=== PATIENT | male | born 1970 | race American Indian/Alaskan Native ===

== ENCOUNTER 2018-12-28 08:12 | Observation (INO) | payer OTHER ==
--- NOTE | 2018-12-28 08:55 | Emergency Department Report ---
ED Lower Extremity HPI - General Chief Complaint: Extremity Injury, Lower Stated Complaint: RT TOE PAIN Time Seen by Provider: 12/28/18 08:46 Source: patient Mode of arrival: Ambulatory Limitations: No Limitations - History of Present Illness Initial Comments: Patient is a 48-year-old male that presents emergency room with complaints of an open ulcer to the bottom of his right foot this been going on for 3-4 months. Patient states the ulcer is getting bigger and he is noticing skin changes to other toes. Patient states that he is not having any pain. Patient states that the wound has an odor. Patient denies fever and chills. Patient states she is a diabetic and has high blood pressure but stopped his medications about a year ago. Complaint: other -: Gradual, month(s) Injury: Foot: Left Type of Injury: unknown Place: home Severity: severe Improves With: nothing Worsens With: nothing Context: other Treatments Prior to Arrival: bandage - Related Data Home Medications Medication Instructions Recorded Confirmed Last Taken No Known Home Medications [No 12/28/18 12/28/18 Unknown Reported Home Medications] Allergies Allergy/AdvReac Type Severity Reaction Status Date / Time No Known Allergies Allergy Unverified 12/28/18 09:26 ED Review of Systems ROS: Stated complaint: RT TOE PAIN Other details as noted in HPI Constitutional: denies: chills, fever Eyes: denies: eye pain, eye discharge, vision change ENT: denies: ear pain, throat pain Respiratory: denies: cough, shortness of breath, wheezing Cardiovascular: denies: chest pain, palpitations Endocrine: no symptoms reported Gastrointestinal: denies: abdominal pain, nausea, diarrhea Genitourinary: denies: urgency, dysuria Musculoskeletal: denies: back pain, joint swelling, arthralgia Skin: denies: rash, lesions Neurological: denies: headache, weakness, paresthesias Psychiatric: denies: anxiety, depression Hematological/Lymphatic: denies: easy bleeding, easy bruising ED Past Medical Hx - Past Medical History Previous Medical History?: Yes Hx Hypertension: Yes Hx Diabetes: Yes - Surgical History Past Surgical History?: No - Family History Family history: no significant - Social History Smoking Status: Never Smoker Substance Use Type: None - Medications Home Medications: Home Medications Medication Instructions Recorded Confirmed Last Taken Type No Known Home Medications [No 12/28/18 12/28/18 Unknown History Reported Home Medications] ED Physical Exam - General Limitations: No Limitations General appearance: alert, in no apparent distress - Head Head exam: Present: atraumatic, normocephalic - Eye Eye exam: Present: normal appearance - ENT ENT exam: Present: mucous membranes moist - Neck Neck exam: Present: normal inspection - Respiratory Respiratory exam: Present: normal lung sounds bilaterally. Absent: respiratory distress - Cardiovascular Cardiovascular Exam: Present: regular rate, normal rhythm. Absent: systolic mu rmur, diastolic murmur, rubs, gallop - GI/Abdominal GI/Abdominal exam: Present: soft, normal bowel sounds - Rectal Rectal exam: Present: deferred - Extremities Exam Extremities exam: Present: normal inspection - Back Exam Back exam: Present: normal inspection - Neurological Exam Neurological exam: Present: alert, oriented X3 - Psychiatric Psychiatric exam: Present: normal affect, normal mood - Skin Skin exam: Present: warm, dry, normal color, other (right great toe ulcer noted. Ulceration at the base of the great toe. Strong foul odor noted to wound bed. Discharge noted. No tenderness to palpation. White edges noted). Absent: rash ED Course Vital Signs 12/28/18 12/28/18 12/28/18 08:15 08:47 08:49 Temperature 98.6 F 98.5 F Pulse Rate 72 Respiratory 16 Rate Blood Pressure Blood Pressure 186/114 [Left] O2 Sat by Pulse 100 100 Oximetry 12/28/18 12/28/18 12/28/18 09:00 09:16 09:30 Temperature Pulse Rate Respiratory Rate Blood Pressure 158/101 158/101 171/115 Blood Pressure [Left] O2 Sat by Pulse 99 99 97 Oximetry 12/28/18 12/28/18 12/28/18 12:04 12:32 12:37 Temperature Pulse Rate 72 72 Respiratory 20 Rate Blood Pressure 182/112 Blood Pressure [Left] O2 Sat by Pulse Oximetry 12/28/18 13:00 Temperature Pulse Rate Respiratory Rate Blood Pressure 185/106 Blood Pressure [Left] O2 Sat by Pulse Oximetry - Reevaluation(s) Reevaluation #1: Discussed all results with patient. Patient will be admitted to the hospitalist service. Patient agrees to plan of care. 12/28/18 09:49 - Consultations Consultation #1: Hospitalist consulted for admission. Hospitalist to admit patient. Hospitalist to assume care patient. Bridge orders placed 12/28/18 09:49 ED Lower Extremity MDM - Lab Data Result diagrams: 12/28/18 09:00 12/28/18 09:00 - Medical Decision Making Patient is a 48 year-old mellitus emergency room for right foot ulcer. Patient found have a foul-smelling ulcer that tunnels deeper into the foot. Patient will require surgical debridement and IV antibiotics. Patient admits to the hospitalist service. Patient also controlled diabetes secondary to noncompliance. Patient's labs review. - Differential Diagnosis hyperglycemia. Uncontrolled dm Noncompliance. Foot ulcer Critical Care Time: Yes Critical care attestation.: If time is entered above; I have spent that time in minutes in the direct care of this critically ill patient, excluding procedure time. Critical Care Time: 35 minutes ED Disposition Clinical Impression: Non-compliance Diabetic foot ulcer Qualifiers: Diabetic foot ulcer location: toe Diabetes mellitus type: type 2 Laterality: right Non-pressure ulcer stage: with fat layer exposed Qualified Code(s): E11.621 - Type 2 diabetes mellitus with foot ulcer Uncontrolled diabetes mellitus Qualifiers: Diabetes mellitus type: type 2 Glycemic state: with hyperglycemia Qualified Code(s): E11.65 - Type 2 diabetes mellitus with hyperglycemia Disposition: DC-09 OP ADMIT IP TO THIS HOSP Is pt being admited?: Yes Does the pt Need Aspirin: No Condition: Critical Time of Disposition: 09:40
[2018-12-28 09:22] LABS: Basophils % (Auto) 0.5 % (0.0-1.8); Eosinophils # (Auto) 0.1 K/mm3 (0.0-0.4); Eosinophils % (Auto) 1.8 % (0.0-4.3); Hematocrit 35.9 % (35.5-45.6); Hemoglobin 12.1 gm/dl (11.8-15.2); Lymphocytes # (Auto) 1.8 K/mm3 (1.2-5.4); Lymphocytes % (Auto) 30.4 % (13.4-35.0); Mean Corpuscular HGB Conc 34 % (32-34); Mean Corpuscular Volume 87 fl (84-94); Monocytes # (Auto) 0.5 K/mm3 (0.0-0.8); Platelet Count 260 K/mm3 (140-440); Red Blood Count 4.15 M/mm3 (3.65-5.03); Red Cell Distribution Width 13.1 % (13.2-15.2)
[2018-12-28 09:36] LABS: Alanine Aminotransferase 22 units/L (7-56); Albumin 3.9 g/dL (3.9-5); BUN/Creatinine Ratio 20; Blood Urea Nitrogen 14 mg/dL (9-20); Calcium 9.1 mg/dL (8.4-10.2); Hemolysis Index 10
[2018-12-28] MEDS ORDERED: APRESOLINE IV ONE (12:25)
[2018-12-28] MEDS ORDERED: APRESOLINE ONE (12:32)
--- NOTE | 2018-12-28 14:49 | History and Physical Report ---
History of Present Illness Date of examination: 12/28/18 Date of admission: 12/28/18 09:48 History of present illness: 48-yr-old male patient with significant past medical history of type 2 diabetes mellitus not on any medications for more than a year presented to the emergency room with nonhealing infected ulcer of the right foot for the last 3-4 months. Patient denies any trauma, pain however complaints of foul-smelling order from the discharge, Denies fever, patient also has history of hypertension noncompliant with medication Patient denied nausea vomiting abdominal pain Denies headache dizziness weakness or numbness Past History Past Medical History: diabetes, hypertension, other (noncompliant) Past Surgical History: No surgical history Social history: alcohol abuse, other ( uses marijuana). denies: smoking Family history: no significant family history Medications and Allergies Allergies Allergy/AdvReac Type Severity Reaction Status Date / Time No Known Allergies Allergy Unverified 12/28/18 09:26 Home Medications Medication Instructions Recorded Confirmed Last Taken Type No Known Home Medications [No 12/28/18 12/28/18 Unknown History Reported Home Medications] Review of Systems Constitutional: no fever, no chills, no weakness Ears, nose, mouth and throat: no nasal congestion, no nasal discharge Cardiovascular: no chest pain, no palpitations Respiratory: no cough, no shortness of breath Gastrointestinal: no abdominal pain, no nausea, no vomiting Genitourinary Male: no dysuria, no hematuria Musculoskeletal: no myalgias, no arthritis Integumentary: wounds (diet foot nonhealing) Neurological: no weakness, no numbness, no seizures, no syncope Psychiatric: no anxiety, no depression Endocrine: no cold intolerance, no heat intolerance Hematologic/Lymphatic: no easy bruising, no easy bleeding Allergic/Immunologic: no urticaria, no allergic rhinitis Exam - Constitutional Vitals: Temp Pulse Resp BP Pulse Ox 97.4 F L 84 20 167/110 98 12/28/18 13:33 12/28/18 13:33 12/28/18 13:33 12/28/18 13:33 12/28/18 14:01 General appearance: Present: no acute distress, well-nourished - EENT Eyes: Present: PERRL, EOM intact - Neck Neck: Present: supple, normal ROM - Respiratory Respiratory effort: normal Respiratory: bilateral: diminished, negative: rales, rhonchi, wheezing - Cardiovascular Rhythm: regular Heart Sounds: Present: S1 & S2 - Extremities Extremities: no ischemia, No edema, abnormal (right foot great toe metatarsal head nonhealing ulcer) - Abdominal General gastrointestinal: Present: soft, non-tender, non-distended, normal bowel sounds - Integumentary Integumentary: Present: clear, warm - Musculoskeletal Musculoskeletal: strength equal bilaterally - Psychiatric Psychiatric: appropriate mood/affect, cooperative - Neurologic Neurologic: moves all extremities Results - Labs CBC & Chem 7: 12/28/18 09:00 12/28/18 09:00 Labs: Abnormal lab results 12/28/18 12/28/18 12/28/18 Range/Units 08:23 09:00 09:00 RDW 13.1 L (13.2-15.2) % [place] % (Auto) 9.0 H (0.0-7.3) % Creatinine 0.7 L (0.8-1.5) mg/dL Glucose 249 H (75-100) mg/dL POC Glucose 222 H (70-105) 12/28/18 Range/Units 12:22 RDW (13.2-15.2) % [place] % (Auto) (0.0-7.3) % Creatinine (0.8-1.5) mg/dL Glucose (75-100) mg/dL POC Glucose 202 H (70-105) Assessment and Plan --Diabetic foot ulcer/nonhealing infected X-ray.foot, wound care, empiric antibiotics Follow cultures, surgical consult, ID consult if needed --Type 2 diabetes mellitus; uncontrolled Secondary to noncompliance, Accu-Chek sliding scale coverage ADA diet and long-acting insulin as needed --Hypertension; moderate control, continue current antihypertensives and when necessary medications --DVT prophylaxis; Lovenox Will monitor the patient closely and adjust management as needed Plan of care is reviewed with the patient and his
[2018-12-28] MEDS ORDERED: TYLENOL PO PRN (14:59)
[2018-12-28] MEDS: CLEOCIN 300 MG/50 mL 300 MG/50 ML BAG IV SCH ×2 (15:36→23:07)
[2018-12-28] MEDS: ZESTRIL PO SCH (15:37)
[2018-12-28] MEDS: HCTZ PO SCH (15:37)
[2018-12-28] MEDS: HumaLOG SUB-Q SCH ×2 (18:09→23:08)
[2018-12-28] MEDS: APRESOLINE PO SCH (23:07)
[2018-12-28] MEDS: LOVENOX SUB-Q SCH (23:07)
[2018-12-29] MEDS: APRESOLINE IV PRN ×2 (01:24→05:26)
[2018-12-29] MEDS ORDERED: NORMODYNE IV ONE (02:36)
[2018-12-29] MEDS: CLEOCIN 300 MG/50 mL 300 MG/50 ML BAG IV SCH ×4 (05:26→23:39)
[2018-12-29] MEDS: APRESOLINE PO SCH ×3 (06:00→22:04)
--- NOTE | 2018-12-29 08:03 | Progress Note ---
Assessment and Plan Assessment and plan: --Diabetic foot ulcer/nonhealing infected X-ray foot, wound care, empiric antibiotics Blood and wound cultures Surgical evaluation for possible debridement --Type 2 diabetes mellitus; uncontrolled Secondary to noncompliance, Accu-Chek sliding scale coverage ADA diet and long-acting insulin , A1c 10.9 --Hypertension; moderate control, continue current antihypertensives and when necessary medications --DVT prophylaxis; Lovenox monitor the patient closely and adjust management as needed Plan of care is reviewed with the patient and his nurse History Interval history: Patient seen and evaluated medical records reviewed Patient feels better no new complaints Vital signs noted Hospitalist Physical - Constitutional Vitals: Temp Pulse Resp BP Pulse Ox 98.4 F 109 H 18 149/97 97 12/29/18 05:22 12/29/18 06:47 12/29/18 06:47 12/29/18 06:47 12/29/18 06:47 General appearance: Present: no acute distress, well-nourished - EENT Eyes: Present: PERRL, EOM intact - Neck Neck: Present: supple, normal ROM - Respiratory Respiratory effort: normal Respiratory: bilateral: diminished, negative: rales, rhonchi, wheezing - Cardiovascular Rhythm: regular Heart Sounds: Present: S1 & S2 - Extremities Extremities: no ischemia, No edema, abnormal (dressing in place) - Abdominal General gastrointestinal: soft, non-tender, non-distended, normal bowel sounds - Integumentary Integumentary: Present: clear, warm - Psychiatric Psychiatric: appropriate mood/affect, cooperative - Neurologic Neurologic: moves all extremities Results - Labs CBC & Chem 7: 12/28/18 09:00 12/28/18 09:00 Labs: Laboratory Last Values WBC 6.0 K/mm3 (4.5-11.0) 12/28/18 09:00 RBC 4.15 M/mm3 (3.65-5.03) 12/28/18 09:00 Hgb 12.1 gm/dl (11.8-15.2) 12/28/18 09:00 Hct 35.9 % (35.5-45.6) 12/28/18 09:00 MCV 87 fl (84-94) 12/28/18 09:00 MCH 29 pg (28-32) 12/28/18 09:00 MCHC 34 % (32-34) 12/28/18 09:00 RDW 13.1 % (13.2-15.2) L 12/28/18 09:00 Plt Count 260 K/mm3 (140-440) 12/28/18 09:00 Lymph % (Auto) 30.4 % (13.4-35.0) 12/28/18 09:00 [place] % (Auto) 9.0 % (0.0-7.3) H 12/28/18 09:00 Eos % (Auto) 1.8 % (0.0-4.3) 12/28/18 09:00 Baso % (Auto) 0.5 % (0.0-1.8) 12/28/18 09:00 Lymph # 1.8 K/mm3 (1.2-5.4) 12/28/18 09:00 [place] # 0.5 K/mm3 (0.0-0.8) 12/28/18 09:00 Eos # 0.1 K/mm3 (0.0-0.4) 12/28/18 09:00 Baso # 0.0 K/mm3 (0.0-0.1) 12/28/18 09:00 Seg Neutrophils % 58.3 % (40.0-70.0) 12/28/18 09:00 Seg Neutrophils # 3.5 K/mm3 (1.8-7.7) 12/28/18 09:00 Sodium 138 mmol/L (137-145) 12/28/18 09:00 Potassium 3.7 mmol/L (3.6-5.0) 12/28/18 09:00 Chloride 99.5 mmol/L (98-107) 12/28/18 09:00 Carbon Dioxide 25 mmol/L (22-30) 12/28/18 09:00 17 mmol/L 12/28/18 09:00 BUN 14 mg/dL (9-20) 12/28/18 09:00 0.7 mg/dL (0.8-1.5) L 12/28/18 09:00 Estimated GFR > 60 ml/min 12/28/18 09:00 20 % 12/28/18 09:00 Glucose 249 mg/dL (75-100) H 12/28/18 09:00 POC Glucose 238 (70-105) H 12/28/18 22:14 10.9 % (4-6) H 12/29/18 06:58 Lactic Acid 1.20 mmol/L (0.7-2.0) 12/28/18 09:00 Calcium 9.1 mg/dL (8.4-10.2) 12/28/18 09:00 0.50 mg/dL (0.1-1.2) 12/28/18 09:00 AST 16 units/L (5-40) 12/28/18 09:00 ALT 22 units/L (7-56) 12/28/18 09:00 100 units/L (35-129) 12/28/18 09:00 7.1 g/dL (6.3-8.2) 12/28/18 09:00 3.9 g/dL (3.9-5) 12/28/18 09:00 1.2 % 12/28/18 09:00 Active Medications - Current Medications Current Medications: Generic Name Dose Route Start Last Admin Trade Name Freq PRN Reason Stop Dose Admin Acetaminophen 650 mg 12/28/18 14:59 Tylenol PO Q4H PRN Pain, Mild (1-3) Enoxaparin Sodium 40 mg 12/28/18 22:00 12/28/18 23:07 Lovenox SUB-Q 40 mg QDAY@2200 [facility] Administration Hydralazine HCl 10 mg 12/28/18 14:58 12/29/18 05:26 Apresoline IV 10 mg Q4HR PRN Administration Hypertension Hydralazine HCl 25 mg 12/28/18 22:00 12/29/18 06:00 Apresoline PO Not Given Q8HR [facility] Hydrochlorothiazide 12.5 mg 12/28/18 16:00 12/28/18 15:37 Hctz PO 12.5 mg QDAY ANDRES Administration Clindamycin HCl 300 mg in 50 mls @ 100 mls/hr 12/28/18 16:00 12/29/18 05:26 Cleocin 300 Mg/50 Ml IV 100 mls/hr Q6HR ANDRES Administration Protocol Insulin Human Isoph/Insulin Regular 10 unit 12/29/18 08:00 Humulin 70/30 SUB-Q BIDDIAB ANDRES Insulin Human Lispro 0 unit 12/28/18 16:30 12/28/18 23:08 Humalog SUB-Q 3 unit ACHS ANDRES Administration Protocol Lisinopril 20 mg 12/28/18 16:00 12/28/18 15:37 Zestril PO 20 mg QDAY ANDRES Administration
[2018-12-29 08:11] LABS: BUN/Creatinine Ratio 18; Blood Urea Nitrogen 11 mg/dL (9-20); Calcium 9.2 mg/dL (8.4-10.2); Hemolysis Index 14
--- NOTE | 2018-12-29 09:15 | XRay Report ---
RIGHT FOOT, 3 views: History: Diabetic foot ulcer Shallow soft tissue ulceration is identified medial and inferior to the first metatarsophalangeal joint. There is no obvious underlying bony destruction or periostitis to suggest osteomyelitis. There is mild osteopenia. No acute osseous findings or joint pathology is identified. IMPRESSION: Soft tissue findings as described. No evidence for osteomyelitis.
[2018-12-29] MEDS: HumaLOG SUB-Q SCH ×4 (09:24→22:46)
[2018-12-29] MEDS: HCTZ PO SCH (09:25)
[2018-12-29] MEDS: ZESTRIL PO SCH (09:25)
[2018-12-29] MEDS ORDERED: K-DUR PO ONE ×2 (10:30→17:00)
--- NOTE | 2018-12-29 18:41 | Consultation ---
History of Present Illness Consult date: 12/29/18 Reason for consult: wound care Requesting physician: SHIRLEY HERMAN Chief complaint: right foot wound - History of present illness History of present illness: 48yo M with untreated DM and HTN presents for wound evaluation. Gen Surgery consulted for wound management. Pt reports that wound has been there since Apr 2018. Denies persistent pain. Has occasional tingling. No drainage. No F/C/N/V. Pt has sensation in foot. Past History Past Medical History: diabetes, hypertension, other (noncompliant) Past Surgical History: No surgical history Social history: alcohol abuse, other ( uses marijuana). denies: smoking Family history: no significant family history Medications and Allergies Allergies Allergy/AdvReac Type Severity Reaction Status Date / Time No Known Allergies Allergy Unverified 12/28/18 09:26 Home Medications Medication Instructions Recorded Confirmed Last Taken Type No Known Home Medications [No 12/28/18 12/28/18 Unknown History Reported Home Medications] Active Meds: Active Medications Acetaminophen (Tylenol) 650 mg PO Q4H PRN PRN Reason: Pain, Mild (1-3) Enoxaparin Sodium (Lovenox) 40 mg SUB-Q QDAY@2200 [facility] Last Admin: 12/28/18 23:07 Dose: 40 mg Documented by: Hydralazine HCl (Apresoline) 10 mg IV Q4HR PRN PRN Reason: Hypertension Last Admin: 12/29/18 05:26 Dose: 10 mg Documented by: Hydralazine HCl (Apresoline) 25 mg PO Q8HR [facility] Last Admin: 12/29/18 14:55 Dose: 25 mg Documented by: Hydrochlorothiazide (Hctz) 12.5 mg PO QDAY [facility] Last Admin: 12/29/18 09:25 Dose: 12.5 mg Documented by: Clindamycin HCl (Cleocin 300 Mg/50 Ml) 300 mg in 50 mls @ 100 mls/hr IV Q6HR [facility]; Protocol Last Admin: 12/29/18 18:16 Dose: Not Given Documented by: Insulin Human Isoph/Insulin Regular (Humulin 70/30) 10 unit SUB-Q BIDDIAB [facility] Last Admin: 12/29/18 16:47 Dose: 10 unit Documented by: Insulin Human Lispro (Humalog) 0 unit SUB-Q ACHS [facility]; Protocol Last Admin: 12/29/18 16:38 Dose: Not Given Documented by: Lisinopril (Zestril) 20 mg PO QDAY [facility] Last Admin: 12/29/18 09:25 Dose: 20 mg Documented by: Review of Systems - Constitutional no fever, no chills, no chronic pain - Cardiovascular no chest pain, no shortness of breath - Respiratory no cough - Gastrointestinal no abdominal pain, no nausea, no vomiting - Integumentary wounds, foot/leg ulcers Exam Vital Signs Temp Pulse Resp BP Pulse Ox 98.6 F 72 16 186/114 100 12/28/18 08:15 12/28/18 08:15 12/28/18 08:15 12/28/18 08:15 12/28/18 08:15 - General physical appearance Positive: no distress, no pain, other (pleasant. appears healthy) - Eyes Positive: normal occular movement - Respiratory Positive: normal expansion, normal respiratory effort - Integumentary no rash, no growths, no abnormal pigmentation, other (Large callus noted under right 1st MTP joint. 1cm superficial skin ulcer noted in center. No signs of infection. Calluses noted on medial side of 1st toe, between 1st and 2nd toes, and on the lateral aspect of 5th toe. Sensation intact. Strong DP and PT pulses. Foot is warm and dry) - Neurologic Neurologic: alert and oriented to time, place and person - Psychiatric Psychiatric: appropriate mood/affect, intact judgment & insight, cooperative Results - Labs 12/28/18 09:00 12/29/18 06:58 Abnormal lab results 12/28/18 12/29/18 12/29/18 Range/Units 22:14 06:58 06:58 Potassium 3.3 L (3.6-5.0) mmol/L Chloride 96.6 L (98-107) mmol/L Creatinine 0.6 L (0.8-1.5) mg/dL Glucose 260 H (75-100) mg/dL POC Glucose 238 H (70-105) Hemoglobin A1c 10.9 H (4-6) % 12/29/18 12/29/18 12/29/18 Range/Units 08:30 11:40 16:27 Potassium (3.6-5.0) mmol/L Chloride (98-107) mmol/L Creatinine (0.8-1.5) mg/dL Glucose (75-100) mg/dL POC Glucose 227 H 214 H 133 H (70-105) Hemoglobin A1c (4-6) % Diabetes panel 12/29/18 12/29/18 Range/Units 06:58 06:58 Sodium 137 (137-145) mmol/L Potassium 3.3 L (3.6-5.0) mmol/L Chloride 96.6 L (98-107) mmol/L Carbon Dioxide 23 (22-30) mmol/L BUN 11 (9-20) mg/dL Creatinine 0.6 L (0.8-1.5) mg/dL Glucose 260 H (75-100) mg/dL Hemoglobin A1c 10.9 H (4-6) % Calcium 9.2 (8.4-10.2) mg/dL Calcium panel 12/29/18 Range/Units 06:58 Calcium 9.2 (8.4-10.2) mg/dL Pituitary panel 12/29/18 Range/Units 06:58 Sodium 137 (137-145) mmol/L Potassium 3.3 L (3.6-5.0) mmol/L Chloride 96.6 L (98-107) mmol/L Carbon Dioxide 23 (22-30) mmol/L BUN 11 (9-20) mg/dL Creatinine 0.6 L (0.8-1.5) mg/dL Glucose 260 H (75-100) mg/dL Calcium 9.2 (8.4-10.2) mg/dL Adrenal panel 12/29/18 Range/Units 06:58 Sodium 137 (137-145) mmol/L Potassium 3.3 L (3.6-5.0) mmol/L Chloride 96.6 L (98-107) mmol/L Carbon Dioxide 23 (22-30) mmol/L BUN 11 (9-20) mg/dL Creatinine 0.6 L (0.8-1.5) mg/dL Glucose 260 H (75-100) mg/dL Calcium 9.2 (8.4-10.2) mg/dL - Imaging Additional studies: foot x-ray report reviewed Assessment and Plan - Patient Problems (1) Diabetic foot ulcer Current Visit: Yes Status: Acute Qualifiers: Diabetic foot ulcer location: unspecified part of foot Diabetes mellitus type: type 2 Laterality: right Non-pressure ulcer stage: limited to breakdown of skin Qualified Code(s): E11.621 - Type 2 diabetes mellitus with foot ulcer; L97.511 - Non-pressure chronic ulcer of other part of right foot limited to breakdown of skin Plan to address problem: Pt stable. No signs of infection. As patient has no insurance, will ask wound care nurse to develop treatment plan that he can do on his own. Unfortunately, without insurance, can not come to wound care center. I will remove the callus at the bedside tomorrow. No other debridement needed at this time. Discussed with Dr. Herman. Please call with questions. Time=30min
[2018-12-29] MEDS: LOVENOX SUB-Q SCH (22:04)
[2018-12-30] MEDS: CLEOCIN 300 MG/50 mL 300 MG/50 ML BAG IV SCH (05:21)
[2018-12-30] MEDS: APRESOLINE PO SCH ×2 (07:28→13:21)
[2018-12-30] MEDS: HumaLOG SUB-Q SCH ×2 (09:33→13:21)
[2018-12-30] MEDS: ZESTRIL PO SCH (09:34)
[2018-12-30] MEDS: HCTZ PO SCH (09:34)
--- NOTE | 2018-12-30 09:38 | Progress Note ---
Assessment and Plan - Patient Problems (1) Diabetic foot ulcer Current Visit: Yes Status: Acute Qualifiers: Diabetic foot ulcer location: unspecified part of foot Diabetes mellitus type: type 2 Laterality: right Non-pressure ulcer stage: limited to breakdown of skin Qualified Code(s): E11.621 - Type 2 diabetes mellitus with foot ulcer; L97.511 - Non-pressure chronic ulcer of other part of right foot limited to breakdown of skin Plan to address problem: Pt stable. Discussed with WOC nurse. She agrees there is no infection. She recommended foam pads. As patient has no insurance, can not get into wound clini c. Rec: 1) Advised patient to get callus pads and corn removers from local store 2) Needs better fitting shoes 3) Ideally, would get orthotics to offload the areas on the feet that have excessive pressure. 4) Foam pads for comfort Please call with questions. Ok to d/c home from my perspective. time=15min Subjective Date of service: 12/30/18 Patient Reports: Positive: no new complaints Objective Vital Signs - 12hr 12/29/18 12/29/18 12/30/18 22:04 22:23 05:01 Temperature 98.6 F 97.7 F Pulse Rate 105 H 99 H 110 H Respiratory 18 16 Rate Blood Pressure 158/80 154/111 154/112 O2 Sat by Pulse 99 100 Oximetry 12/30/18 07:28 Temperature Pulse Rate 110 H Respiratory Rate Blood Pressure 154/112 O2 Sat by Pulse Oximetry - General physical appearance no distress, no pain - Respiratory normal expansion, normal respiratory effort - Integumentary other (right foot callus/corns unchanged. 1st MTP joint callus shaved at bedside. Patient tolerated it well) - Labs 12/28/18 09:00 12/29/18 06:58
--- NOTE | 2018-12-30 10:26 | Discharge Summary ---
Providers - Providers Date of Admission: 12/28/18 09:48 Date of discharge: 12/30/18 Attending physician: SHIRLEY HERMAN 12/28/18 14:50 Consult to Wound/ET Nurse [CONS] Routine Reason For Exam: wound eval 12/29/18 07:58 Consult to Physician [CONS] Routine Comment: Consulting Provider: YANCI SANCHEZ Physician Instructions: Reason For Exam: diabetic foot ulcer/debrediment [facility] Reason for admission: nonhealing diabetic foot/infected wound/uncontrolled blood sugars Condition: Stable Pertinent studies: X-ray foot; soft tissue swelling, no osteomyelitis Procedures: Surgical debridement Hospital course: 48-yr-old male patient with significant past medical history of type 2 diabetes mellitus not on any medications for more than a year presented to the emergency room with nonhealing infected ulcer of the right foot for the last 3-4 months. Patient denies any trauma, pain however complaints of foul-smelling order from the discharge, Denies fever, patient also has history of hypertension noncompliant with medication Patient denied nausea vomiting abdominal pain, Denies headache dizziness weakness or numbness Admitted to the hospital symptomatically managed, treated with wound care IV antibiotics evaluated by surgery Patient underwent surgical debridement, blood sugars were closely monitored medications optimized placed on insulin Patient received diabetic education, nutrition education Surgery cleared for discharge on oral antibiotics and outpatient wound care Today patient is comfortable no new complaints vital signs stable physical examination unremarkable Hemodynamically and clinically stable at discharge Discharge diagnosis; --Diabetic foot ulcer/nonhealing infected X-ray.foot, wound care, empiric antibiotics Surgery evaluated, s/p surgical debridement --Type 2 diabetes mellitus; uncontrolled Secondary to noncompliance, Accu-Chek sliding scale coverage ADA diet and long-acting insulin as needed --Hypertension; moderate control, continue current antihypertensives and when necessary medications --DVT prophylaxis; Lovenox Table at discharge Disposition: DC-01 TO HOME OR SELFCARE Time spent for discharge: 32 min Core Measure Documentation - Palliative Care Palliative Care/ Comfort Measures: Not Applicable - Core Measures Any of the following diagnoses?: none Exam - Constitutional Vitals: Temp Pulse Resp BP Pulse Ox 97.7 F 110 H 16 154/112 100 12/30/18 05:01 12/30/18 07:28 12/30/18 05:01 12/30/18 07:28 12/30/18 05:01 General appearance: Present: no acute distress, well-nourished - EENT Eyes: Present: PERRL, EOM intact - Neck Neck: Present: supple, normal ROM - Respiratory Respiratory effort: normal Respiratory: negative: rales, rhonchi, wheezing - Cardiovascular Rhythm: regular Heart Sounds: Present: S1 & S2 - Extremities Extremities: no ischemia, abnormal (dressing in place) - Abdominal General gastrointestinal: Present: soft, non-tender, non-distended, normal bowel sounds - Integumentary Integumentary: Present: clear, warm - Musculoskeletal Musculoskeletal: strength equal bilaterally - Psychiatric Psychiatric: appropriate mood/affect, cooperative - Neurologic Neurologic: CNII-XII intact, moves all extremities Plan Activity: no restrictions Diet: diabetic Wound: per wound nurse instructions Additional Instructions: Advised to comply with medications and diet [facility]Primary Care Provider[facility] - 7 Days Prescriptions: hydrALAZINE [Apresoline TAB] 25 mg PO Q8HR #90 tablet Clindamycin [Clindamycin CAP] 300 mg PO Q8H #30 cap hydroCHLOROthiazide [HCTZ] 25 mg PO QDAY #30 tablet Insulin NPH/Regular [NovoLIN 70/30] 15 unit SUB-Q BIDDIAB 30 Days units Lisinopril [Zestril TAB] 20 mg PO QDAY #30 tablet
[2018-12-30 13:28] VITALS: BP 153/102
== END 2018-12-30 13:30 | disposition home or self-care (01) ==
LOC: ED 08:12 → 3A 09:48
PROVIDERS: ADMIT Internal Medicine; ATTEND Internal Medicine
DX: E11.621 Type 2 diabetes mellitus with foot ulcer (principal); I10 Essential (primary) hypertension; L97.511 Non-pressure chronic ulcer of other part of right foot limited to breakdown of skin
CPT/HCPCS: 36415; 73630; 80048; 80053; 82140; 82962; 83036; 85025; 87040; 87116; 96365; 96366; 96372; 96375; 96376; 99291; G0378; J0360; J1650; J1815